=== PATIENT | male | born 1960 | race Caucasian/White ===

== ENCOUNTER 2017-06-27 14:34 | Emergency (ER) | payer BC ==
[~2017-06-27] VITALS: Ht 162.6 cm; Wt 79.5 kg
[2017-06-27 14:36] VITALS: BP 182/98; PULSE 68; RESP 18; TEMP 98; O2SAT 94
[2017-06-27] MEDS: TETANUS/DIPHTHERIA TOXOID ADULT 0.5 ML VIAL IM ONE (15:13)
[2017-06-27] MEDS ORDERED: CIPR-9 PO (15:20)
[2017-06-27] MEDS ORDERED: NORC5TAB PO (15:20)
--- NOTE | 2017-06-27 15:28 | PD ---
HPI . Foreign body Chief Complaint: Foreign Body Time Seen by Provider: 14:42 Travel History International Travel<30 days: No Contact w/Intl Traveler<30days: No Traveled to known affect area: No History of Present Illness HPI Patient presents to us by private vehicle for a fistula in his right foot. He states that he was playing in [place] when his granddaughter when he inadvertently stepped on the foot. The respooler's tried to help them out but they did not have anything large enough to cut the hook. He does not know the date of his last tetanus shot. He is complaining with some associated pain. It is mild. It is exacerbated by trying to stand on his foot and relieved by elevation. Onset was just prior to presentation and symptoms have been continuous since that time. [facility] Past Medical History High Cholesterol: Yes Diminished Hearing: No Social History Alcohol Use: No (OCCASION) Tobacco Use: No Substance Use: No Allergies-Medications (Allergen,Severity, Reaction): Coded Allergies: No Known Allergies (Unverified , 06/27/17) Reported Meds & Prescriptions Reported Meds & Active Scripts Active Cipro (Ciprofloxacin HCl) 500 Mg Tab 500 Mg PO BID 5 Days Thebes (Hydrocodone-Acetaminophen) 5 Mg-325 Mg Tab 1 Tab PO Q4H PRN Review of Systems Except as stated in HPI: all other systems reviewed are Neg Physical Exam Narrative GENERAL: Awake and alert and in no acute distress. SKIN: Warm and dry. He has got a large fishhook impaled in the plantar aspect of the right foot in the area of the first MTP joint. HEAD: Normocephalic/atraumatic. EYES: Pupils are equal. Extraocular movements are intact. NECK: Normal range of motion. CARDIOVASCULAR: Regular rate and rhythm. RESPIRATORY: Nonlabored respirations. MUSCULOSKELETAL: Atraumatic. NEUROLOGICAL: Nonfocal. PSYCHIATRIC: Appropriate mood and affect. Data Data Last Documented VS Vital Signs Date Time Temp Pulse Resp B/P (MAP) Pulse Ox O2 Delivery O2 Flow Rate FiO2 06/27/17 14:36 98.0 68 18 182/98 (126) 94 Orders Orders Tetanus/Diphtheria Tox Adult (Tetanus/Di (06/27/17 15:15) Ed Discharge Order (06/27/17 15:21) MDM Medical Decision Making Medical Screen Exam Complete: Yes Emergency Medical Condition: Yes Differential Diagnosis Differential diagnosis includes but is not limited to simple foreign body, foreign body with wound infection, foreign body with cellulitis, foreign body with neurovascular compromise. Narrative Course This patient presents with a foreign body in the plantar aspect of his right foot. It is a large fishhook. The patient will be discharged with prescriptions for Cipro and Thebes. He is to follow-up if he develops any signs of infection. Procedures Procedure Narrative FOREIGN BODY REMOVAL: The skin was cleaned with alcohol. It was then anesthetized with 1% plain lidocaine. The fern of the foot was easily pushed through the skin. The hard part was cutting the hook. Several tools were tried without success. The hook was eventually cut with bolt cutters. It was then easily removed. He tolerated the procedure well without complication. Diagnosis Primary Impression: Foreign body in foot, right Qualified Codes: S90.851A - Superficial foreign body, right foot, initial encounter Patient Instructions: General Instructions Departure Forms: Tests/Procedures Scripts Ciprofloxacin (Cipro) 500 Mg Tab 500 MG PO BID for Infection for 5 Days, #10 TAB 0 Refills Prov: Tammy Osman MD 06/27/17 Hydrocodone-Acetaminophen (Thebes) 5 Mg-325 Mg Tab 1 TAB PO Q4H Y for PAIN, #12 TAB 0 Refills Prov: Tammy Osman MD 06/27/17 Disposition: 01 DISCHARGE HOME Condition: Stable Tammy Osman MD June 27, 2017 15:28
[2017-06-27 15:44] VITALS: BP 155/93
== END 2017-06-27 15:52 | disposition home or self-care (01) ==
LOC: NEPD 14:34
DX: S90.851A Superficial foreign body, right foot, initial encounter (principal); E78.00 Pure hypercholesterolemia, unspecified; W45.8XXA Other foreign body or object entering through skin, initial encounter; Z23 Encounter for immunization
CPT/HCPCS: 64450; 90471; 90714